=== PATIENT | female | born 1990 | race Two or more races ===

== ENCOUNTER 2018-03-01 22:36 | Emergency (ER) | payer MEDICAID ==
[~2018-03-01] VITALS: Ht 152.4 cm; Wt 68.2 kg
[2018-03-01 22:54] VITALS: Ht 152.4 cm; Wt 68.2 kg
[2018-03-01] MEDS ORDERED: PHENERGAN25 M1 (22:56)
[2018-03-02 01:23] LABS: BASOPHILS 0.2 % (0-2); EOSINOPHILS 0.1 % (0-7); HEMATOCRIT 37.8 % (36.0-48.0); HEMOGLOBIN 12.8 g/dL (12-16); IMMATURE GRANULOCYTES 0.2 % (0-5); LYMPHOCYTES 18.6 % (15-50); MCH 26.3 pg (26.0-34.0); MCHC 33.9 g/dL (31.0-37.0); MCV 77.8 fL (80.0-100.0); MEAN PLATELET VOLUME 9.8 fL (7.4-10.4); MONOCYTES 6.2 % (2-11); NEUTROPHILS 74.7 % (40-80); PLATELET COUNT 291 10x3/uL (130-400); RBC 4.86 10x6/uL (4.00-5.40); RDW 15.1 % (11.5-14.5); WBC 15.3 10x3/uL (4.8-10.8)
[2018-03-02 01:39] LABS: ALBUMIN 3.7 g/dL (3.4-5.0); ALKALINE PHOSPHATASE 52 U/L (46-116); ALT (SGPT) 21 U/L (10-68); CALC OSMOLALITY 270 mosm/kg (275-300); CALCIUM 9.2 mg/dL (8.5-10.1); CHLORIDE - SERUM 99 mmol/L (98-107); CREATININE - SERUM 0.6 mg/dL (0.6-1.3); GLUCOSE 96 mg/dL (74-106); POTASSIUM - SERUM 3.7 mmol/L (3.5-5.1); PROTEIN - SERUM 8.8 g/dL (6.4-8.2); SODIUM 136 mmol/L (136-145); UREA NITROGEN 10 mg/dL (7-18); eGFR NON AFRICAN AMERICAN > 90 mL/min (90-120)
[2018-03-02 01:53] LABS: AMYLASE - SERUM 64 U/L (25-115); HCG - QUANTITATIVE (MATERNAL) 166482 mIU/mL; LIPASE 81 U/L (73-393)
[2018-03-02] MEDS ORDERED: ZOFRAN8 MG PO (03:05)
[2018-03-02 03:09] LABS: APPEARANCE HAZY (CLEAR); BILIRUBIN NEGATIVE (NEGATIVE); COLOR DK YELLOW (YELLOW); GLUCOSE NEGATIVE (NEGATIVE); KETONE LARGE mg/dL (NEGATIVE); NITRITE POSITIVE (NEGATIVE); PROTEIN NEGATIVE (NEGATIVE); SPECIFIC GRAVITY 1.015 (1.005-1.020); UROBILINOGEN NORMAL (NORMAL); WHITE CELLS - URINE 25-50 /hpf (0-5)
[2018-03-02 03:10] LABS: BACTERIA MANY /hpf (NONE SEEN)
[2018-03-02] MEDS ORDERED: MACROBID100 MG PO (03:10)
[2018-03-02 04:04] VITALS: BP 108/76
== END 2018-03-02 04:05 | disposition home or self-care (01) ==
LOC: D.ER 22:36
PROVIDERS: Family Medicine
DX: O23.41 Unspecified infection of urinary tract in pregnancy, first trimester (principal); Z3A.09 9 weeks gestation of pregnancy

== ENCOUNTER → 2018-09-01 12:34 | Outpatient (CLI) | payer MEDICAID ==
[2018-03-01 22:54] VITALS: BMI 29.3
[~2018-09-01 12:34] MED LIST: MACROBID100 MG PO; PHENERGAN25 M1; ZOFRAN8 MG PO
[2018-09-01 13:33] LABS: APPEARANCE CLEAR (CLEAR); BILIRUBIN NEGATIVE (NEGATIVE); COLOR YELLOW (YELLOW); GLUCOSE NEGATIVE (NEGATIVE); KETONE NEGATIVE (NEGATIVE); NITRITE NEGATIVE (NEGATIVE); PROTEIN NEGATIVE (NEGATIVE); UROBILINOGEN NORMAL (NORMAL)
== END | disposition home or self-care (01) ==
LOC: D.LDO 12:34
PROVIDERS: ATTEND Obstetrics & Gynecology
DX: O26.893 Other specified pregnancy related conditions, third trimester (principal); Z3A.35 35 weeks gestation of pregnancy; R10.30 Lower abdominal pain, unspecified

== ENCOUNTER 2018-09-27 10:03 | Inpatient (IN) | payer BC ==
[~2018-09-27] VITALS: Ht 152.4 cm; Wt 81.6 kg
[2018-09-27] VITALS (10 sets, daily range): BP systolic 105–120; BP diastolic 57–83; Ht 152.4 cm; Wt 81.6 kg
[2018-09-27] MEDS ORDERED: BUTALB-APAP-CA1 EACH PO (10:38)
[2018-09-27] MEDS ORDERED: PRENAVITE1 TAB PO (10:39)
[2018-09-27 11:08] LABS: HEMATOCRIT 35.7 % (36.0-48.0); HEMOGLOBIN 11.8 g/dL (12-16); MCH 26.1 pg (26.0-34.0); MCHC 33.1 g/dL (31.0-37.0); MEAN PLATELET VOLUME 9.6 fL (7.4-10.4); RBC 4.52 10x6/uL (4.00-5.40); RDW 20.4 % (11.5-14.5); WBC 10.2 10x3/uL (4.8-10.8)
--- NOTE | 2018-09-27 14:33 | NUR ---
FUNDUS IS FIRM, MIDLINE U2. SHARON PAD IN PLACE WITH SCANT DISCHARGE NOTED. NO CLOTS PRESENT. WILL CONTINUE TO MONITOR.
--- NOTE | 2018-09-27 14:54 | NUR ---
RECEIVED PT FROM VIA BED TO ROOM 1273. BED LOCKED AND PLACED IN LOW POSITION. PT AWAKE. AAO X 3. VSS. FUNDUS FIRM AT U/U. RUBRA LOCHIA SCANT AMT. NO CLOTS EXPRESSED ON FUNDAL MASSAGE. ABDOMINAL INCISION WITH DERMABOND. NO DRAINAGE NOTED. SLIGHT REDNESS NOTED. ICE PACK TO INCISION. NEG HOMANS' SIGN. PPP. NO EDEMA NOTED TO BLE. PT STATES PAIN OF "4" ON 0-10 PAIN SCALE. PIV SITE CLEAR TO RIGHT HAND. NS WITH PITOCIN INFUSING AT 125 ML/HR. SR UP X2. CALL LIGHT IN REACH. SURGICAL PILLOW PROVIDED TO PT.
--- NOTE | 2018-09-27 15:24 | NUR ---
TORADOL 30 MG GIVEN SIVP OVER 2 MINUTES. PT INSTRUCTED ON MED. VERBALIZES UNDERSTANDING.
--- NOTE | 2018-09-27 16:00 | NUR ---
PT LYING SUPINE IN BED. EYES CLOSED. RESP NON-LABORED. PT NOT DISTURBED TO ALLOW FOR REST. SR UP X 2. CALL LIGHT IN REACH.
--- NOTE | 2018-09-27 16:55 | NUR ---
PT LYING IN SEMI-DE LEON'S POSITION. AWAKE. FUNDUS FIRM AT U/U. RUBRA LOCHIA SMALL AMT. NO CLOTS EXPRESSED. ABDOMINAL INCISION CLEAR. ICE PACK CONTINUES TO INCISION. PT STATES PAIN CONTINUES AT "4" ON 0-10 PAIN SCALE. CLEAR LIQUID DIET SERVED. PT STATES DOES NOT EAT PORK. MESSAGE TO DIETARY.
--- NOTE | 2018-09-27 18:55 | NUR ---
PT SITTING UP IN BED. FRESH ICE PACK TO INCISION. I/O COMPLETED.
--- NOTE | 2018-09-27 19:25 | NUR ---
SHIFT ASSESSMENT COMPLETED. VSS. FUNDUS FIRM, MIDLINE AND U1 WITH SMALL AMT RUBRA LOCHIA. C/O PAIN 4-5/10, ABD ACHING AND SORENESS WITH INCISIONAL BURNING AND STINGING AND "SOME CRAMPING." 1 MG IV DILAUDAD GIVEN PER ORDER, OFFERED 2 MG DOSE AND DECLINED AT THIS TIME. STATES THAT SHE DOESN'T WANT TO BE SLEEPY. STATES THAT SHE HASN'T PASSED FLATUS AT THIS TIME. JUNIOR DRAINING TO BEDSIDE DRAINAGE WITH 75 MLS PRESENT. BOWEL SOUNDS PRESENT AND ACTIVE X4 QUADRANTS. LOWER TRANSVERSE MIDLINE ABD INCISION WELL APPROXIMATED WITH GLUE INTACT, NO DRAINAGE OR S/S OF INFECTION NOTED. ICE PACK PROVIDED PER REQUEST. NO BLE EDEMA NOTED, SCD'S ON BLE. PLAN OF CARE DISCUSSED WITH PT, VERBALIZES UNDERSTANDING. ENCOURAGED USE OF INCENTIVE SPIROMETER, REFUSES AT THIS TIME, STATES THAT SHE WILL USE AFTER FAMILY LEAVES. BED IN LOW POSITION WITH UPPER SIDE RAILS RAISED X2. CALL LIGHT AND PHONE WITHIN REACH. WILL CONTINUE TO MONITOR AND ASSIST PRN.
--- NOTE | 2018-09-27 20:00 | NUR ---
PAIN REASSESSMENT COMPLETED, VERBALIZES NO CHANGE IN PAIN. JUNIOR D/C'D PER PT REQUEST AND RIGHT HAND PIV SL. UP WITH STAND BY ASSIST PER PT REQUEST. AMBULATED TO BATHROOM, PERICARE DONE PER PT. PERIPADS AND PANTIES PROVIDE. GOWN CHANGED. PT AMBULATED TO COUCH, INSTRUCTED ON USE OF BREAST PUMP PER PT REQUEST, DEMONSTRATES UNDERSTANDING. LINENS CHANGED. INFANT IN OPEN CRIB NEXT TO PT. ICE WATER PROVIDED. PERIPAD PLACED OVER INCISION, INSTRUCTED ON INCISIONAL CARE, VERBALIZES UNDERSTANDING, DENIES NEEDS AT THIS TIME. CALL LIGHT PLACED WITHIN PT REACH. WILL CONTINUE TO MONITOR.
--- NOTE | 2018-09-27 20:33 | NUR ---
ASSISTED BACK TO BED PER PT REQUEST WITH STANDBY ASSIST. C/O PAIN 7/10, PERCOCET GIVEN PER ORDER AND PT REQUEST. REPORTS THAT PAIN IS 4-5/10 WHEN AT REST. ABD SORENESS AND ACHING WITH INCISIONAL BURNING AND STINGING. ICE PACK AND ICE WATER PROVIDED PER PT REQUEST. DENIES ADDITIONAL NEEDS. CALL LIGHT AND PHONE WITHIN REACH. SCD'S ON BLE. INCENTIVE SPIROMETER USED WITH GOOD EFFORT X6. BED IN LOW POSITION WITH UPPER SIDE RAILS RAISED X2.
--- NOTE | 2018-09-27 21:21 | NUR ---
STATES THAT PAIN IS UNCHANGED FOLLOWING ALL INTERVENTIONS. STATES THAT PAIN IS 5-6/10. TORADOL GIVEN PER ORDER. DR. WILLETT NOTIFIED OF PT C/O UNRELIEVED PAIN. ORDEDERS REC'D TO ADMINISTER 2 MG IVP DILUADAD NOW AND INCREASE TO 2 MG DILAUDAD IVP Q2HR PRN MILD TO MODERATE PAIN AND 4 MG DILAUDAD IVP Q 4HR PRN MODERATE TO SEVERE PAIN.
--- NOTE | 2018-09-27 21:32 | NUR ---
UP TO VOID. VOIDED 200 MLS IN HAT. SCANT RUBRA LOCHIA TO PERIPAD, NO CLOTS. AMBULATED BACK TO BED, SCD'S ON BLE. PAIN 6/10, ABD ACHING/CRAMPING AND INCISIONAL BURNING AND STINGING. HYDROMORPHONE GIVEN SLOW IVP PER ORDER. INFANT TO NBN PER PT REQUEST. BED IN LOW POSITION WITH UPPER SIDE RIALS RAISED X2. CALL LIGHT AND PHONE WITHIN REACH. WILL CONTINUE TO MONITOR AND ASSIST PRN.
--- NOTE | 2018-09-27 22:05 | NUR ---
PAIN REASSESSMENT COMPLETED. PT RESTING ON RIGHT SIDE WITH EYES CLOSED, RESPIRATIONS REGULAR AND UNLABORED, NO S/S OF DISTRESS NOTED. BED IN LOW POSITION WITH UPPER SIDE RAILS RAISED X2. CALL LIGHT AND PHONE WITHIN REACH. WILL CONTINUE TO MONITOR AND ASSIST PRN.
--- NOTE | 2018-09-27 23:01 | NUR ---
CREAM OF CHICKEN SOUP AND ICE WATER PROVIDED PER REQUEST. DENIES PAIN WHEN AT REST, STATES THAT WHEN SHE MOVES IN BED PAIN INCREASES TO 3-4/10, DENIES NEED FOR INTERVENTION AT THIS TIME. INCENTIVE SPIROMETER DONE WITH ENCOURAGMENT, GOOD EFFORT NOTED X8. BED IN LOW POSITION WITH UPPER SIDE RAILS RAISED X2. CALL LIGHT AND PHONE WITHIN REACH. WILL CONTINUE TO MONITOR AND ASSIST PRN.
--- NOTE | 2018-09-27 23:53 | NUR ---
UP TO VOID, VOIDED 200 MLS IN HAT. SCANT RUBRA LOCHIA TO PERIPAD, NO CLOTS. VSS. FUNDUS FIRM MIDLINE AND U2. C/O PAIN 4/10, HYDROMORPHONE GIVEN SLOW IVP PER ORDER AND PT REQUEST. NEW ICE PACK PROVIDED. SCD'S ON BLE. INCENTIVE SPIROMETER DONE WITH GOOD EFFORT X10. BED IN LOW POSITION WITH UPPER SIDE RAILS RAISED X2. CALL LIGHT AND PHONE WITHIN REACH. WILL CONTINUE TO MONITOR AND ASSIST PRN.
--- NOTE | 2018-09-28 00:30 | NUR ---
PAIN REASSESSMENT COMPLETED. PT RESTING QUIETLY IN SEMI FOWLERS POSITIONS WITH EYES CLOSED. RESPIRATIONS REGULAR AND UNLABORED, NO S/S OF DISTRESS NOTED. BED IN LOW POSITION WITH UPPER SIDE RAILS RAISED X2. CALL LIGHT AND PHONE WITHIN REACH. WILL CONTINUE TO MONITOR AND ASSIST PRN.
--- NOTE | 2018-09-28 01:42 | NUR ---
C/O ITCHING. NOTIFIED. ORDERS REC'D.
--- NOTE | 2018-09-28 01:49 | NUR ---
50 MG PO BENADRYL GIVEN PER ORDER. UP TO VOID, VOIDED 150 MLS IN HAT, SCANT RUBRA LOCHIA TO PERIPAD, NO CLOTS NOTED. PERICARE DONE PER PT. BACK TO BED. SANDWICH TRAY AND ICE WATER PROVIDED PER REQUEST. DENIES ADDITIONAL NEEDS. INCENTIVE SPIROMETER DONE X5 WITH GOOD EFFORT. SCD'S ON BLE. EDUCATED ON BENADRYL, DENIES QUESTIONS. BED IN LOW POSITION WITH UPPER SIDE RIALS RAISED X2. CALL LIGHT AND PHONE WITHIN REACH. WILL CONTINUE TO MONITOR AND ASSIST PRN.
--- NOTE | 2018-09-28 03:15 | NUR ---
30 MG IVP TORADOL GIVEN PER ORDER. PAIN 4/10, ABD CRAMPING, ACHING, AND SORENESS WITH INCISIONAL BURNING AND STINGING. REQUESTS PEROCOCET, GIVEN PER ORDER AND PT REQUEST. REPORTS THAT SHE USED INCENTIVE SPIROMETER JUST PRIOR TO RN COMING TO ROOM. ICE PACK REPLACED. SCD'S REMAIN ON. DENIES ADDITIONAL NEEDS AT THIS TIME. BED IN LOW POSITION WITH UPPER SIDE RAILS RAISED X2. CALL LIGHT AND PHONE WITHIN REACH. WILL CONTINUE TO MONITOR AND ASSIST PRN.
--- NOTE | 2018-09-28 04:07 | NUR ---
PAIN REASSESSMENT DONE, PT RESTING QUIETLY WITH EYES CLOSED LAYING ON LEFT SIDE. RESPIRATIONS REGULAR AND UNLABORED, NO S/S OF DISTRESS NOTED. SCD'S REMAIN ON BLE. BED IN LOW POSITION WITH UPPER SIDE RAILS RAISED X2. CALL LIGHT AND PHONE WITHIN REACH. WILL CONTINUE TO MONITOR AND ASSIST PRN.
[2018-09-28 04:53] VITALS: BP 117/62
--- NOTE | 2018-09-28 04:53 | NUR ---
UP TO VOID, VOIDED 800 MLS IN HAT. SCANT RUBRA LOCHIA NOTED TO PERIPAD, NO CLOTS. VSS. FUNDUS FIRM, MIDLINE AND U2. NEW ICE PACK PROVIDED PER PT REQUEST. BACK TO BED. SCD'S LEFT OFF PER PT REQUEST. STATES THAT SHE IS GOING TO PUMP. REQUESTS INFANT BE BROUGHT TO ROOM, NBN NOTIFIED AND WILL BRING TO ROOM. BED IN LOW POSITION WITH UPPER SIDE RAILS RAISED X2. CALL LIGHT AND PHONE WITHIN REACH.
--- NOTE | 2018-09-28 06:02 | NUR ---
SITTING IN BED STYLE EATING SANDWICH. DENIES NEEDS AT THIS TIME. INFANT IN OPEN CRIB AT BEDSIDE. BED IN LOW POSITION WITH UPPER SIDE RAILS RAISED X2. CALL LIGHT AND PHONE WITHIN REACH. WILL CONT TO MONITOR AND ASSIST PRN.
[2018-09-28 07:03] LABS: BASOPHILS 0.1 % (0-2); EOSINOPHILS 0.3 % (0-7); HEMATOCRIT 33.2 % (36.0-48.0); HEMOGLOBIN 10.7 g/dL (12-16); IMMATURE GRANULOCYTES 0.3 % (0-5); LYMPHOCYTES 9.1 % (15-50); MCH 25.7 pg (26.0-34.0); MCHC 32.2 g/dL (31.0-37.0); MCV 79.8 fL (80.0-100.0); MEAN PLATELET VOLUME 9.8 fL (7.4-10.4); MONOCYTES 5.6 % (2-11); NEUTROPHILS 84.6 % (40-80); PLATELET COUNT 204 10x3/uL (130-400); RBC 4.16 10x6/uL (4.00-5.40); RDW 20.7 % (11.5-14.5)
[2018-09-28 07:22] VITALS: BP 113/71
--- NOTE | 2018-09-28 07:33 | NUR ---
ENTERED ROOM. PT AWAKE. VS AND ASSESSMENT DONE. ABD SOFT. SCANT LOCHIA NOTED ON PAD. DENIES NEED FOR PAIN MED AT THIS TIME.
[2018-09-28 08:15] LABS: RAPID PLASMA REAGIN Non Reactive (Non Reactive)
--- NOTE | 2018-09-28 08:47 | NUR ---
TRANICE - BREAST FEEDING SUPPORT TECHNICIAN IN ROOM. PT STATES THAT SHE WOULD LIKE PAIN MEDICATION AFTER SHE IS FINISHED PUMPING.
--- NOTE | 2018-09-28 09:21 | NUR ---
Ioana Wilson 09/28/18 S: Patient states she prefers to pump verses latching . States she pumped for 4-6 months exclusively with her twin boys but only plans on pumping for 1 month with this baby. Denies questions or concerns with usage of pump. States she has pumped 3 times since delivery for about 20 minutes, both breast. Denies nipple pain with pumping. States she is providing formula also. Verbally agrees to contact nursery staff if any questions or concerns. O: Patient sitting up in bed pumping. sleep in crib next to bed. Observed patient pumping and asked her reason for pumping. Validated patient prefer preferences to pump. Explained how to verify she is using the correct size flange. Try to pump every 2-3 hours in the day 3-4 hours at night, or as able to help with establishing your milk supply. Explained how to use pump and how to verify the suctions level on the pump. Pump both breast for 15 minutes, 20 minutes max if milk is flowing. Observed no colostrum in bottle with pump. States she has been pumping for 15 minutes. Asked if her nipples are sore with pumping? Explained how to hand express. You may hand express breastmilk into a spoon and provide the milk to . It is normal to pump small amounts due to the amount of milk needs at this point. Your milk will increase by volume daily with pumping. Asked if any questions or concerns? Please let nursery staff know if any questions or concerns. A: Patient prefers to pump verses latching to the breast. P: Continue to support during hospital visit. Vishal Rodriguez, CLC
--- NOTE | 2018-09-28 09:26 | NUR ---
PT RATES HER PAIN A 2 ON SCALE OF 0-10. STATES SHE DOES WANT PAIN MEDICATION. MED GIVEN.
--- NOTE | 2018-09-28 11:05 | NUR ---
up and about in room. ambulating well. states that pain medication has helped. states that she is passing gas. also states that she voided 400cc. new panties provided. in room. states that she wants to wait until afternoon for shower. denies other needs.
--- NOTE | 2018-09-28 13:15 | NUR ---
UP AND ABOUT IN ROOM. LINENS CHANGED. VS DONE
[2018-09-28 13:28] VITALS: BP 120/69
--- NOTE | 2018-09-28 13:47 | NUR ---
STATES WILL TAKE PAIN MEDICATION AT THIS TIME. CO PAIN IN ABD. STATES HAS BEEN PASSING GAS. RATES PAIN A 2 ON SCALE OF 0-10.
--- NOTE | 2018-09-28 14:11 | NUR ---
DR WILLETT HERE TO SEE PT- STATES HE IS GOING TO CHANGE UP HER PAIN MEDICATION.
--- NOTE | 2018-09-28 17:27 | NUR ---
AMBULATES TO DESK- STATES HAD BM. STATES WOULD LIKE PAIN MEDICATION. WHEN ASK STATES SHE WOULD LIKE DILAUDID 4MG INSTEAD OF 2 MG. RATES PAIN A 1 ON SCALE OF 0-10. STATES THAT BACK PAIN IS GONE AFTER TORADOL BUT HAS PAIN AT INCISION. MED GIVEN REQUESTED.
--- NOTE | 2018-09-28 18:40 | NUR ---
UP AMBULATING IN ROOM. STATES THAT DILAUDID DID NOT HELP WITH PAIN AND STATES THAT BACK PAIN IS COMING BACK. RATES PAIN A 1 ON SCALE OF 0-10.
--- NOTE | 2018-09-28 19:28 | NUR ---
AMBULATORY IN [place]. STEADY GAIT NOTED. DENIES NEEDS.
[2018-09-28 20:29] VITALS: BP 121/69
--- NOTE | 2018-09-28 20:29 | NUR ---
SHIFT ASSESSMENT COMPLETED PER FLOWSHEET. VSS. FUNDUS FIRM, MIDLINE AND U2 WITH SMALL AMT RUBRA LOCHIA, NO CLOTS NOTED. PAIN 2-3/10. DENIES NEED FOR INTERVENTION AT THIS TIME. STATES THAT SHE WILL TAKE MEDICATION FOR PAIN FOLLOWING 2200 FEEDING OF INFANT SO SHE CAN REST WHEN HE RESTS. REPORTS THAT SHE IS PASSING FLATUS AND VOIDING WITHOUT DIFFICULTY, DENIES PASSING CLOTS. REPORTS THAT SHE HAD BM TODAY. LOWER TRANSVERSE ABD INCISION WELL APPROXIMATED WITH GLUE INTACT, NO S/S OF INFECTION NOTED. PT EDUCATED ON S/S OF INFECTION AND INCISIONAL CARE, VERBALIZES UNDERSTANDING. REFUSES SCD'S. ICE WATER PROVIDED. DENIES ADDITIONAL NEEDS AT THIS TIME. BED IN LOW POSITION WITH UPPER SIDE RAILS RAISED X2. CALL LIGHT AND PHONE WITHIN REACH. WILL CONTINUE TO MONITOR AND ASSIST PRN.
--- NOTE | 2018-09-28 20:30 | NUR ---
PAIN REASSESSMENT COMPLETED, -08/01, STATES THAT TORADOL "HELPED A WHOLE LOT." BLANKET PROVIDED PER REQUEST. DENIES ADDITIONAL NEEDS. BED IN LOW POSITION WITH UPPER SIDE RAILS RAISED X2. CALL LIGHT AND PHONE WITHIN REACH. SCD'S ON BLE. WILL CONTINUE TO MONITOR AND ASSIST PRN.
--- NOTE | 2018-09-28 21:13 | NUR ---
PT AMBULATORY IN [place], STEADY GAIT NOTED. DENIES NEEDS AT THIS TIME.
--- NOTE | 2018-09-28 22:15 | NUR ---
C/O PAIN 10/01, INCISIONAL BURNING AND STINGING. REQUESTS SCHEDULE TORADOL AND HYDROMORPHONE TABS TO BE GIVEN TOGETHER. GIVEN PER ORDER AND PT REQUEST. ICE WATER PROVIDED. DENIES ADDITIONAL NEEDS. BED IN LOW POSITION WITH UPPER SIDE RAILS RAISED X2. CALL LIGHT AND PHONE WITHIN REACH.
--- NOTE | 2018-09-28 23:00 | NUR ---
RESTING QUIETLY WITH EYES CLOSED, RESPIRATIONS REGULAR AND UNLABORED, NO S/S OF DISTRESS NOTED. BED IN LOW POSITION WITH UPPER SIDE RAILS RAISED X2. CALL LIGHT AND PHONE WITHIN REACH. WILL CONTINUE TO MONITOR AND ASSIST PRN.
[2018-09-29 00:43] VITALS: BP 115/63
--- NOTE | 2018-09-29 00:43 | NUR ---
VSS. FUNDUS REMAINS FIRM, MIDLINE AND U2 WITH SCANT RUBRA LOCHIA, NO CLOTS NOTED. REPORTS THAT SHE JUST VOIDED. PAIN 1-2/10, DENIES NEED FOR INTERVENTION. ICE WATER PROVIDED. DENIES ADDITIONAL NEEDS. BED IN LOW POSITION WITH UPPER SIDE RIALS RAISED X2. CALL LIGHT AND PHONE WITHIN REACH. WILL CONTINUE TO MONITOR AND ASSIST PRN.
--- NOTE | 2018-09-29 02:33 | NUR ---
RESTING QUIETLY IN SEMI FOWLERS POSITION WITH EYES CLOSED. RESPIRATIONS REGULAR AND UNLABORED, OCCASIONAL SNORING. NO S/S OF DISTRESS NOTED. BED IN LOW POSITION WITH UPPER SIDE RIALS RAISED X2. CALL LIGHT AND PHONE WITHIN REACH. WILL CONTINUE TO MONITOR.
[2018-09-29 04:18] VITALS: BP 128/84
--- NOTE | 2018-09-29 04:18 | NUR ---
UP TO VOID. VSS. FUNDUS REMAINS FIRM, MIDLINE AND U2 WITH SCANT RUBRA LOCHIA. C/O PAIN 08/01. SCHEDULED TORADOL GIVEN PER ORDER AND DILAUDAD GIVEN PER PT REQUEST. DENIES ADDITIONAL NEEDS. BED IN LOW POSITION WITH UPPER SIDE RAILS RAISED X2. CALL LIGHT AND PHONE WITHIN REACH. WILL CONTINUE TO MONITOR.
--- NOTE | 2018-09-29 05:09 | NUR ---
BONDING WITH INFANT. REPORTS THAT PAIN IS MUCH BETTER, /, DENIES NEEDS. BED IN LOW POSITION WITH UPPER SIDE RAILS RAISED X2. CALL LIGHT AND PHONE WITHIN REACH. WILL CONTINUE TO MONITOR.
--- NOTE | 2018-09-29 06:17 | NUR ---
INFANT BACK TO NBN PER PT REQUEST. DENIES NEEDS AT THIS TIME. GETTING UP OOB TO VOID. STEADY GAIT NOTED. BED IN LOW POSITION WITH UPPER SIDE RAILS RAISED X2. CALL LIGHT AND PHONE WITHIN REACH. WILL CONTINUE TO MONITOR.
--- NOTE | 2018-09-29 07:25 | NUR ---
ASSUME CARE OF THIS PT SITTING UP IN BED BOTTLEFEEDING . / INCISIONAL PAIN, NO REQUESTS, DENIES THOUGHTS OF HURTING SELF OR OTHERS. WILL COMPLETE SHIFT ASSESSMENT AFTER FEEDING INFANT AND BREAKFAST. - GBS, B+ RUBELLA IMMUNE, NON-SMOKER. 2 DAYS S/P LTCS. NO CURRENT VISITORS IN ROOM, SIDERAILS UP X 2, CALL LIGHT IN REACH. ANTICIPATE DC HOME TODAY.
--- NOTE | 2018-09-29 07:39 | NUR ---
CONCUR WITH CURRENT CAREPLAN PRIORITIES.
--- NOTE | 2018-09-29 08:19 | NUR ---
SITTING UP EATING BREAKFAST. IN CRIB. REQUESTED JELLY WHICH WAS GIVEN. NO ADDITIONAL REQUEST.
[2018-09-29 08:37] VITALS: BP 116/66
--- NOTE | 2018-09-29 08:37 | NUR ---
SITTIN UP IN BED. SAYS SHE IS DOING GOOD. SHIFT ASSESSMENT COMPLETED. ASLEEP IN CRIB. SIDE RAILS UP X 2. TORADOL DUE AT APPROX 0920.
--- NOTE | 2018-09-29 08:53 | NUR ---
REQUESTED PAIN MEDICATION FOR 2/10 DULL INCISIONAL ACHING. PAIN GOAL IS 0/10. DILAUDID 2 MG GIVEN PO. TORADOL ACTUALLY NOT DUE UNTIL 1015. ASLEEP IN CRIB, SIDERAILS UP X 2. CALL LIGHT IN REACH.
--- NOTE | 2018-09-29 09:25 | NUR ---
AMBULATING IN [place]. SAYS PAIN IS A 1-2/10. EXPRESSES THAT IT IS TOLERABLE. REQUESTED WASHCLOTHES WHICH WERE GIVEN.
[2018-09-29] MEDS ORDERED: DILAUDID2 MG (09:56)
[2018-09-29] MEDS ORDERED: TORADOL10 MG PO (09:57)
[2018-09-29] MEDS ORDERED: DILAUDID2 MG PO (09:59)
--- NOTE | 2018-09-29 11:20 | NUR ---
DC TEACHING COMPLETED TO INCLUDE POST OP CARE, PP DEPRESSION, SIGNS OF INFECTION, DANGER SIGNS, MEDICATION ADMINISTRATION, BOTTLE FEEDING, BREASTCARE, AND FOLLOW-UP. NO SPECIFIC QUESTIONS ASKED. WILL GIVE TORADOL PRIOR TO DC SCHEDULED.
--- NOTE | 2018-09-29 12:05 | NUR ---
DC'D VIA WHEELCHAIR TO CAR BY STUDENT RN. HAS DC INSTRUCTIONS & PRESCRIPTIONS. ALL BELONGINGS REMOVED FROM ROOM. INFANT IN CARSEAT.
--- NOTE | 2018-09-29 17:01 | OP ---
PATIENT NAME: GABINO LEE MEDICAL RECORD: [id number] :[birth year] LOCATION:[id number] ADMISSION DATE:09/27/18 SURGEON: VIGNESH WILLETT MD DATE OF OPERATION: 09/27/2018 PRE-DELIVERY DIAGNOSIS: at 39 weeks. POST- DELIVERY DIAGNOSIS: at 39 weeks. PROCEDURE: Repeat . SURGEON: Vignesh Willett MD DRYERMAN/WOMAN: Sarath Quiros. ANESTHESIOLOGIST: Darryn Lerma MD ANESTHESIA: Spinal. FINDINGS: Viable male , vertex presentation, Apgars 9 and 9, weight 3519 grams. Unremarkable uterus, tubes, and ovaries. SPECIMENS REMOVED: Placenta. SPECIMEN DISPOSITION: Discarded. ESTIMATED BLOOD LOSS: 800 cc. FLUIDS: 2100 cc of lactated Ringer's 2100. Urine output 825 cc of clear urine. COMPLICATIONS: None. DRAIN: Fraire to gravity. INDICATIONS: The patient is a 28-year-old parous female with a history of prior section. The patient was 39 weeks and desires repeat. Risks, benefits, and limitations have been discussed. DESCRIPTION OF PROCEDURE: After informed consent was assured, the patient was taken to the operating room where anesthetic was obtained without difficulty. The patient was then prepped and draped in usual sterile fashion. After assessment of the anesthetic and it found to be adequate, an incision was made and carried down to the underlying layer of the fascia. The fascia was opened in the midline and extended out laterally. Rectus bellies were dissected free superiorly and inferiorly and then in the midline. The peritoneum was entered and the peritoneal opening extended. DeLee all-purpose retractor was inserted and a low transverse hysterotomy was performed after developing a bladder flap. Infant was delivered onto the abdomen atraumatically. Cords doubly clamped and cut and the infant was passed to the attendant. Cord blood sample was obtained and the placenta was removed via Crede maneuver. Uterus was exteriorized, cleared of all clot and debris and closed with a running locked stitch of chromic. [id number] stitches are applied in the midline for a bleeding sinus that is encountered on the superior aspect of the incision in the OPERATIVE REPORT [id number] GABINO LEE midline. After hemostasis was achieved here, the uterus was deflected inferiorly and the posterior cul-de-sac irrigated. Uterus was now returned to the abdomen and inspected. Again, there was some bleeding from this venous sinus on the superior aspect of this incision in the midline and another [id number] stitches applied here and then Bijan for hemostasis. Rectus bellies were now reapproximated with a loose interrupted stitch in the midline and the fascia was closed with looped PDS. Subcutaneous tissues were irrigated, bleeding vessels cauterized, and the skin was reapproximated with 3-0 Monocryl on a Ilia needle. Dermabond was applied. Sponge, lap, and needle count was correct times 3 during this procedure. TRANSINT:[id number] Voice Confirmation ID: [id number] DOCUMENT ID: [id number] VIGNESH WILLETT MD at 1701 CC: [id number] DICTATION DATE: 09/27/18 1347 GASKET NOTCHER: 09/27/181956 DIS IN 09/29/18 [facility] [address] [place] [address]
--- NOTE | 2018-09-29 19:13 | MORECARE ---
CASE MANAGEMENT DISCHARGE SUMMARY PATIENT: GABINO LEE UNIT: [id number] ADM DATE: 09/27/18 AGE: 28 : [birth year] SEX: F ROOM/BED: D.1273 AUTHOR: DEVORA JON PHYSICIAN: REFERRING PHYSICIAN: KERMIT WILLETT MD DATE OF SERVICE: 09/29/18 Discharge Plan Patient Name: GABINO LEE Facility: [facility]:[place] : 1990 Planned Disposition: Home Anticipated Discharge Date: 09/29/18 Discharge Date: 09/29/2018 Expected LOS: 2 Initial Reviewer: [email or web address] Initial Review Date: 09/27/2018 Generated: 09/29/18 8:12 pm Patient Name: GABINO LEE Page [id number] at 1913 All edits/amendments must be made on the electronic document DICTATION DATE: 09/29/181911 LICENSED CLINICIAN: ROZ 09/29/181911 RPT#: [id number] DC DATE:09/29/18 STATUS: DIS IN [facility] [address] [place] [address] END OF REPORT
== END 2018-09-29 12:06 | disposition home or self-care (01) | DRG 788 ==
LOC: D.LD 10:03 → D.SDCHOLD 12:00 → D.LD 16:27
PROVIDERS: ADMIT Obstetrics & Gynecology; ATTEND Obstetrics & Gynecology
PROC: 10D00Z1 Extraction of Products of Conception, Low, Open Approach (ICD-10-PCS; principal; 2018-09-27 12:00)
DX: O34.219 Maternal care for unspecified type scar from previous cesarean delivery (principal); Z37.0 Single live birth; Z3A.39 39 weeks gestation of pregnancy